=== PATIENT | male | born 1965 | race Caucasian/White ===

== ENCOUNTER 2018-05-03 10:37 | Emergency (ER) | payer OTHER ==
[2018-05-03 10:46] VITALS: BMI 34.9
[2018-05-03] MEDS ORDERED: SODIUM CHLORIDE 0.9% 500 ML INFUS.BAG IV ONE (11:23)
--- NOTE | 2018-05-03 11:26 | PDOC ---
History of Present Illness - General History Source: Patient Exam Limitations: No Limitations - History of Present Illness Initial Comments: 05/03/18 11:45 52-year-old male with past medical history of kidney stone presents with left flank pain since this morning. Patient reports that the pain is colicky and feels intense. However improved with Aleve. No nausea or vomiting. Denies dysuria, urinary frequency or hematuria. Denies fevers. <Jina Goodwin - Last Filed: 05/03/18 11:44> - General History Source: Patient Exam Limitations: No Limitations <Carlos Cherry - Last Filed: 05/03/18 16:21> - General Chief Complaint: Pain, Acute Stated Complaint: LT SIDE KIDNEY PAIN Time Seen by Provider: 05/03/18 11:09 Past History <Jina Goodwin - Last Filed: 05/03/18 11:44> - Past Medical History COPD: No Hypercholesterolemia: Yes Other medical history: KIDNEY STONES - Immunization History Immunization Up to Date: Yes - Suicide/Smoking/Psychosocial Hx Smoking History: Never smoked Information on smoking cessation initiated: No Hx Alcohol Use: No Drug/Substance Use Hx: No <Carlos Cherry - Last Filed: 05/03/18 16:21> - Past Medical History Allergies/Adverse Reactions: Allergies Allergy/AdvReac Type Severity Reaction Status Date / Time No Known Allergies Allergy Verified 05/03/18 10:39 Home Medications: Ambulatory Orders Naproxen 500 mg PO BID PRN #20 tablet 05/03/18 Ondansetron HCl [Zofran] 4 mg PO Q8H PRN #15 tablet 05/03/18 Oxycodone HCl/Acetaminophen [Percocet 5-325 mg Tablet] 1 tab PO Q6H PRN #15 tablet MDD 4 05/03/18 Tamsulosin HCl [Flomax] 0.4 mg PO DAILY #14 capsule 05/03/18 *Physical Exam - Vital Signs Last Vital Signs Temp Pulse Resp BP Pulse Ox 98.2 F 88 16 167/104 H 97 05/03/18 10:39 05/03/18 10:39 05/03/18 10:39 05/03/18 10:39 05/03/18 10:39 - Physical Exam Comments: 05/03/18 11:45 GENERAL: Awake, alert, and fully oriented, in no acute distress HEAD: No signs of trauma EYES: PERRLA, EOMI, sclera anicteric, conjunctiva clear ENT: Auricles normal inspection, hearing grossly normal, nares patent, oropharynx clear without exudates. Moist mucosa NECK: (+)mild CVA tenderness. Normal ROM, supple, no lymphadenopathy, JVD, or masses LUNGS: Breath sounds equal, clear to auscultation bilaterally. No wheezes, and no crackles HEART: Regular rate and rhythm, normal S1 and S2, no murmurs, rubs or gallops ABDOMEN: Soft, nontender, normoactive bowel sounds. No guarding, no rebound. No masses EXTREMITIES: Normal range of motion, no edema. No clubbing or cyanosis. No cords, erythema, or tenderness NEUROLOGICAL: Cranial nerves II through XII grossly intact. Normal speech, normal gait SKIN: Warm, Dry, normal turgor, no rashes or lesions noted. <Jina Goodwin - Last Filed: 05/03/18 11:44> - Vital Signs Last Vital Signs Temp Pulse Resp BP Pulse Ox 98.2 F 88 16 167/104 H 97 05/03/18 10:39 05/03/18 10:39 05/03/18 10:39 05/03/18 10:39 05/03/18 10:39 <Carlos Cherry - Last Filed: 05/03/18 16:21> Moderate Sedation - Procedure Monitoring Vital Signs: Procedure Monitoring Vital Signs Temperature 98.2 F 05/03/18 10:39 Pulse Rate 88 05/03/18 10:39 Respiratory Rate 16 05/03/18 10:39 Blood Pressure 167/104 H 05/03/18 10:39 O2 Sat by Pulse Oximetry (%) 97 05/03/18 10:39 <Jina Goodwin - Last Filed: 05/03/18 11:44> - Procedure Monitoring Vital Signs: Procedure Monitoring Vital Signs Temperature 98.2 F 05/03/18 10:39 Pulse Rate 88 05/03/18 10:39 Respiratory Rate 16 05/03/18 10:39 Blood Pressure 167/104 H 05/03/18 10:39 O2 Sat by Pulse Oximetry (%) 97 05/03/18 10:39 <Carlos Cherry - Last Filed: 05/03/18 16:21> ED Treatment Course - LABORATORY CBC & Chemistry Diagram: 05/03/18 11:32 05/03/18 15:00 - RADIOLOGY Radiology Studies Ordered: Category Date Time Status SPIRAL- RENAL-STONE CT [CT] Stat CT Scan 05/03/18 11:23 Ordered <Carlos Cherry - Last Filed: 05/03/18 16:21> Medical Decision Making - Medical Decision Making 05/03/18 11:25 A portion of this note was documented by scribe services under my direction. I have reviewed the details of the note, within reason, and agree with the documentation with the following case summary and management plan written by me. Patient treated in the ED. Nursing notes are reviewed and incorporated into the medical decision-making. Vital signs reviewed. Peripheral IV access obtained by the nurse, laboratory studies are drawn and sent, reviewed and interpreted by myself. Vital Signs Temp Pulse Resp BP Pulse Ox 98.2 F 88 16 167/104 H 97 05/03/18 10:39 05/03/18 10:39 05/03/18 10:39 05/03/18 10:39 05/03/18 10:39 52-year-old male with past medical history of kidney stone presents with left flank pain since this morning. Patient reports that the pain is colicky and feels intense. However improved with Aleve. No nausea or vomiting. Denies dysuria, urinary frequency or hematuria. Denies fevers. I suspect patient likely has renal colic. We'll obtain labs, urinalysis and a spiral CT and reassess. 05/03/18 16:16 CBC, BMP 05/03/18 11:32 05/03/18 15:00 CMP Sodium 140 mmol/L (136-145) 05/03/18 15:00 Potassium 4.6 mmol/L (3.5-5.1) 05/03/18 15:00 Chloride 112 mmol/L (98-107) H 05/03/18 15:00 Carbon Dioxide 24 mmol/L (21-32) 05/03/18 15:00 Anion Gap 4 MMOL/L (8-16) L 05/03/18 15:00 BUN 16 mg/dL (7-18) 05/03/18 15:00 Creatinine 1.3 mg/dL (0.55-1.3) 05/03/18 15:00 Creat Clearance w eGFR 58.20 (>60) 05/03/18 15:00 Random Glucose 140 mg/dL (74-106) H 05/03/18 15:00 Calcium 8.3 mg/dL (8.5-10.1) L 05/03/18 15:00 Total Bilirubin 0.4 mg/dL (0.2-1) 05/03/18 11:32 AST 22 U/L (15-37) 05/03/18 11:32 ALT 61 U/L (13-61) 05/03/18 11:32 Alkaline Phosphatase 92 U/L (45-117) 05/03/18 11:32 Total Protein 7.8 g/dl (6.4-8.2) 05/03/18 11:32 Albumin 4.4 g/dl (3.4-5.0) 05/03/18 11:32 Urine Test Results Urine Color Yellow 05/03/18 11:32 Urine Appearance Clear 05/03/18 11:32 Urine pH 7.0 (5.0-8.0) 05/03/18 11:32 Ur Specific [place] 1.026 (1.010-1.035) 05/03/18 11:32 Urine Protein 1+ (NEGATIVE) 05/03/18 11:32 Urine Glucose (UA) Negative (NEGATIVE) 05/03/18 11:32 Urine Ketones Trace (NEGATIVE) H 05/03/18 11:32 Urine Blood Negative (NEGATIVE) 05/03/18 11:32 Urine Nitrite Negative (NEGATIVE) 05/03/18 11:32 Urine Bilirubin Negative (<2.0 mg/dL) 05/03/18 11:32 Ur Leukocyte Esterase Negative (NEGATIVE) 05/03/18 11:32 CAT scan demonstrates 2 mm left ureterovesicular junction calculus with resultant mild hydronephrosis and a 2 mm nonobstructing left renal tightness and possible 2 mm an object and right renal calculi. Initially, the creatinine was 1.6. I suspect this may have been from dehydration. Patient was given 2 L of IV fluids and the creatinine is improved to 1.3. Given the size of the kidney stone, the patient can be discharged home with urology follow-up. Patient feels comfortable going home with family. Discharge diagnosis is renal colic. I discussed the physical exam findings, ancillary test results and final diagnoses with the patient. I answered all of the patient's questions. The patient was satisfied with the care received and felt comfortable with the discharge plan and treatment plan. The patient will call their primary care physician within 24 hours to arrange follow-up and will return to the Emergency Department with any new, persistant or worsening symptoms. <Carlos Cherry - Last Filed: 05/03/18 16:21> *DC/Admit/Observation/Transfer - Attestations Scribe Attestion: 05/03/18 11:45 Documentation prepared by Jina Goodwin, acting as medical coding instructor for Carlos Cherry MD. <Jnia Goodwin - Last Filed: 05/03/18 11:44> - Discharge Dispostion Decision to Admit order: No <Carlos Cherry - Last Filed: 05/03/18 16:21> Diagnosis at time of Disposition: Kidney stones - Discharge Dispostion Disposition: HOME Condition at time of disposition: Stable - Prescriptions Prescriptions: Naproxen 500 mg PO BID PRN #20 tablet PRN Reason: Pain Ondansetron HCl [Zofran] 4 mg PO Q8H PRN #15 tablet PRN Reason: Nausea Oxycodone HCl/Acetaminophen [Percocet 5-325 mg Tablet] 1 tab PO Q6H PRN #15 tablet MDD 4 PRN Reason: Pain Tamsulosin HCl [Flomax] 0.4 mg PO DAILY #14 capsule - Referrals Referrals: Paul Jacobs [Primary Care Provider] - Shai Ramirez MD [Staff Physician] - - Patient Instructions Printed Discharge Instructions: DI for Kidney Stones Additional Instructions: You have kidney stones that is causing your pain. It will likely pass but may take several days. Drink plenty of fluids and rest. Medications have been prescribed to you, please take them as needed. It is important to follow up with a urologist. Call to schedule an appointment. - Post Discharge Activity
[2018-05-03 12:13] LABS: EPI CELLS 1.7 /HPF (0-5); HYALINE CASTS 4 /hpf (0-8); URINE APPEARANCE CLEAR; URINE BACTERIA 3.708 /hpf (NEGATIVE); URINE BILIRUBIN NEGATIVE (<2.0 mg/dL); URINE COLOR YELLOW; URINE GLUCOSE (UA) NEGATIVE (NEGATIVE); URINE KETONE TRACE (NEGATIVE); URINE LEUK ESTERASE NEGATIVE (NEGATIVE); URINE NITRITE NEGATIVE (NEGATIVE); URINE PROTEIN 1+ (NEGATIVE); URINE RBC 1 /hpf (0-4); URINE WBC 2 /hpf (0-5)
[2018-05-03 12:17] LABS: BASO % 0.3 % (0-2.0); EOS % 0.4 % (0-4.5); HEMATOCRIT 44.5 % (35.4-49); HEMOGLOBIN 15.3 GM/dL (11.7-16.9); MCH 30.9 pg (25.7-33.7); MCHC 34.5 g/dl (32.0-35.9); MEAN CELL VOLUME 89.7 fl (80-96); MEAN PLT VOLUME 10.6 fl (7.5-11.1); MONO % 4.4 % (3.8-10.2); NEUT % 88.9 % (42.8-82.8); PLATELET COUNT 249 K/MM3 (134-434); RBC 4.96 M/mm3 (4.00-5.60); RDW 13.4 % (11.9-15.9); WHITE BLOOD COUNT 11.6 K/mm3 (4.0-10.0)
[2018-05-03 12:38] LABS: ALBUMIN 4.4 g/dl (3.4-5.0); ALK PHOS 92 U/L (45-117); ANION GAP 9 MMOL/L (8-16); BILIRUBIN,TOTAL 0.4 mg/dL (0.2-1); BLOOD UREA NITROGEN 16 mg/dL (7-18); CALCIUM 9.1 mg/dL (8.5-10.1); CHLORIDE 106 mmol/L (98-107); CO2 24 mmol/L (21-32); CREATININE 1.6 mg/dL (0.55-1.3); GLUCOSE,RANDOM 223 mg/dL (74-106); POTASSIUM 4.7 mmol/L (3.5-5.1); SGOT/AST 22 U/L (15-37); SGPT/ALT 61 U/L (13-61); SODIUM 139 mmol/L (136-145); TOT PROT 7.8 g/dl (6.4-8.2)
[2018-05-03] MEDS ORDERED: SODIUM CHLORIDE 1,000 ML IV STA (13:21)
[2018-05-03] MEDS ORDERED: KETOROLAC TROMETHAMINE 30 MG/1 ML VIAL IVPUSH ONE (13:32)
[2018-05-03] MEDS ORDERED: KETOROLAC TROMETHAMINE 30 MG/1 ML VIAL ONE (13:40)
[2018-05-03] MEDS ORDERED: TAMSULOSIN HCL 0.4 MG CAP PO ONE (14:35)
[2018-05-03 15:06] VITALS: TEMP 98.3
[2018-05-03 15:32] LABS: ANION GAP 4 MMOL/L (8-16); BLOOD UREA NITROGEN 16 mg/dL (7-18); CALCIUM 8.3 mg/dL (8.5-10.1); CHLORIDE 112 mmol/L (98-107); CO2 24 mmol/L (21-32); CREATININE 1.3 mg/dL (0.55-1.3); GLUCOSE,RANDOM 140 mg/dL (74-106); POTASSIUM 4.6 mmol/L (3.5-5.1); SODIUM 140 mmol/L (136-145)
[2018-05-03] MEDS ORDERED: TAMSULOSIN HCL 0.4 MG CAP ONE (16:18)
[2018-05-03 16:25] VITALS: BP 132/89; PULSE 83
== END 2018-05-03 16:25 | disposition home or self-care (01) ==
LOC: JER 10:37
PROC: 3E0337Z Introduction of Electrolytic and Water Balance Substance into Peripheral Vein, Percutaneous Approach (ICD-10-PCS; principal; 2018-05-03)
PROC: 3E0333Z Introduction of Anti-inflammatory into Peripheral Vein, Percutaneous Approach (ICD-10-PCS; 2018-05-03)
DX: N20.0 Calculus of kidney (principal); Z87.442 Personal history of urinary calculi; E78.00 Pure hypercholesterolemia, unspecified
CPT/HCPCS: 36415; 74176-TC; 80048; 80053; 81003; 85025; 87086; 99284-25; J7030